=== PATIENT | male | born 1970 | race Caucasian/White ===

== ENCOUNTER 2016-08-15 17:35 | Emergency (ER) | payer BC, OTHER ==
[~2016-08-15] VITALS: Ht 175.3 cm; Wt 98.0 kg
[2016-08-15] MEDS ORDERED: SODIUM CHLORIDE 0.9% 1,000 ML IV ONE (18:13)
[2016-08-15] MEDS ORDERED: CEFTRIAXONE 1 G PREMIX 50 ML IV ONE (18:30)
[2016-08-15 19:01] LABS: CHLORIDE 105 mEq/L (98-107); INDEX HEMOLYSI 1 (1-3); INDEX ICTERIC 1 (1-4); INDEX LIPEMIC 1 (1-3)
[2016-08-15 19:06] LABS: BASOPHILS % 0.7 % (0.0-2.0); EOSINOPHILS % 2.6 % (0.0-5.0); HEMATOCRIT. 45.1 % (42.0-52.0); HEMOGLOBIN. 15.2 g/dL (14.0-18.0); LYMPHOCYTES % 27.4 % (20.0-50.0); MEAN CORPUSCULAR HEMOGLOBIN 29.4 pg (28.0-32.0); MEAN CORPUSCULAR HGB CONC 33.7 g/dL (31.0-37.0); MEAN CORPUSCULAR VOLUME 87.2 fL (80.0-94.0); MEAN PLATELET VOLUME 7.1 fl (7.4-10.4); MONOCYTES % 8.6 % (2.0-8.0); NEUTROPHILS % 60.7 % (40.0-76.0); PLATELET 262 x1000/uL (130-400); RED BLOOD CELL COUNT 5.17 mill/uL (4.7-6.1); RED CELL DISTRIBUTION WIDTH 13.7 % (11.6-14.6)
[2016-08-15 19:08] LABS: ALANINE AMINOTRANSFERASE 43 IU/L (13-61); ALBUMIN 3.3 g/dL (3.4-5.0); ANION GAP 12; CALCIUM 9.1 mg/dL (8.5-10.1); CARBON DIOXIDE 27 mEq/L (21-32); UREA NITROGEN BLOOD 12 mg/dL (7-21); eGFR > 60 mL/min (>60)
[2016-08-15] MEDS ORDERED: BENAZEPRIL 20MG TABLET PO ONE (19:45)
[2016-08-15 23:00] VITALS: BP 174/90
== END 2016-08-15 23:32 | disposition home or self-care (01) ==
LOC: ER 18:26
DX: L03.211 Cellulitis of face (principal); K02.9 Dental caries, unspecified; Z87.891 Personal history of nicotine dependence
CPT/HCPCS: 36415; 80053; 85025; 96374; 99284; J0696; J7030; Z7610